=== PATIENT | male | born 1955 | race Caucasian/White ===

== ENCOUNTER → 2023-11-18 10:19 | Outpatient (REF) | payer MEDICARE, OTHER, SELFPAY | LOC: HWRAD 10:19 | PROVIDERS: ATTENDING PHYSICIAN Internal Medicine Rheumatology; FAMILY PHYSICIAN Family Medicine | DX: M25.551 Pain in right hip (principal); M81.0 Age-related osteoporosis without current pathological fracture; M54.50 Low back pain, unspecified; M35.3 Polymyalgia rheumatica | CPT/HCPCS: 77080 ==